=== PATIENT | female | born 1935 | race Hispanic/Latino ===

== ENCOUNTER 2022-08-21 13:51 | Outpatient (CLI) | payer MEDICARE, MEDICAID | END 2022-08-21 13:52 | disposition home or self-care (01) | LOC: TBSIIMAG 13:51 | PROVIDERS: ATTEND Psychiatry & Neurology Neurology | DX: F03.B0 Unspecified dementia, moderate, without behavioral disturbance, psychotic disturbance, mood disturbance, and anxiety (principal); J34.89 Other specified disorders of nose and nasal sinuses | CPT/HCPCS: 70551 ==